=== PATIENT | female | born 1940 | race Caucasian/White ===

== ENCOUNTER 2016-08-06 12:22 | Emergency (ER) | payer OTHER ==
[~2016-08-06] VITALS: Ht 167.6 cm; Wt 90.7 kg
[~2016-08-06 12:22] MED LIST: ADULT LOW DOSE81 MG PO; APAP650 PO; CARDIZEM CD240 MG PO; COLACE100 MG PO; COZAAR 50 MG TA50 M2 PO; COZAAR100 MG PO; DAILY VALUE1 EAC1 PO; ELIQUIS5 MG PO; FISH OIL 1,001000 M2 PO; HYDROCHLOROTHIA25 M1 PO; HYDROCHLOROTHIA25 M2 PO; HYDROCODONE-AP1 EAC6 PO; LEVOTHYROXINE 0.1 MG PO; LOPRESSOR25 PO; MOBIC15 MG PO; MULTIVITAMINS1 EAC7 PO; PAXIL10 MG; PERCOCET PO; PRILOSEC20 MG PO; ZOCOR20 MG PO; ZOCOR40 MG PO
[2016-08-06] MEDS ORDERED: ELIQUIS5 MG PO (12:33)
[2016-08-06] MEDS ORDERED: LOPRESSOR50 PO (12:34)
[2016-08-06] MEDS ORDERED: CARTIA XT240 M1 PO (12:34)
[2016-08-06] MEDS ORDERED: LEVOTHYROXINE 0.1 MG PO (12:34)
[2016-08-06] MEDS ORDERED: LIPITOR 20 MG T20 M1 PO (12:34)
[2016-08-06] MEDS ORDERED: OMEPRAZOLE 20 M20 MG PO (12:35)
[2016-08-06] MEDS ORDERED: COZAAR 50 MG TA50 M2 PO (12:35)
[2016-08-06] MEDS ORDERED: HYDROCHLOROTHIA25 M1 PO (12:35)
[2016-08-06] MEDS ORDERED: MOBIC15 MG PO (12:36)
[2016-08-06] MEDS ORDERED: HYDROCODONE-AP1 EAC6 PO (13:46)
== END 2016-08-06 14:07 | disposition home or self-care (01) ==
LOC: ER 12:22
DX: S89.91XA Unspecified injury of right lower leg, initial encounter (principal); I10 Essential (primary) hypertension; E78.00 Pure hypercholesterolemia, unspecified; E03.9 Hypothyroidism, unspecified; Z90.710 Acquired absence of both cervix and uterus; Z88.8 Allergy status to other drugs, medicaments and biological substances; X58.XXXA Exposure to other specified factors, initial encounter; Y93.89 Activity, other specified; Y92.89 Other specified places as the place of occurrence of the external cause; Y99.9 Unspecified external cause status

== ENCOUNTER → 2017-10-05 | Outpatient (CLI) | payer OTHER ==
[~2017-10-05] VITALS: Ht 167.6 cm; Wt 90.7 kg
[~2017-10-05] MED LIST changes: +ASTRAGALUS ROOT1 GM PO; +BOSWELLIA SERRAT1 GM PO; +CALCIUM WITH M1 EACH PO; +CARTIA XT240 M1 PO; +CENTRUM SILVER1 EAC4 PO; +CINNAMON500 MG PO; +CO Q-10100 MG PO; +GARLIC1 EACH PO; +GINKGO BILOBA500 MG PO; +GRAPE SEED50 M1 PO; +KELP-LECITHIN-1 EACH PO; +L-ARGININE500 M1 PO; +LIPITOR 20 MG T20 M1 PO; +LOPRESSOR50 PO; +OMEPRAZOLE 20 M20 MG PO; +RESVERATROL100 MG PO; +TURMERIC500 M2 PO; +TYLENOL ARTHRI650 MG PO; +VITAMIN E400 UNI3 PO
--- NOTE | ~2017-10-05 | S ---
[facility] [place] [address] SURGICAL PATH RPT PROCEDURE Name: RAULITO GAMBOA ARELI Room #: REG TERESA M.Waylon.#: [id number] Admission: 10/05/17 Date of : 44 Discharge: Report #: [id number] Path Case #: [id number] PATHOLOGY REPORT COLLECTION DATE: 10/05/2017 RECEIVED DATE: 10/05/2017 SUBMITTING PHYS: Dr. Rafael Brooks OTHER PHYS: Dr. Neville Pérez SPECIMEN(S) RECEIVED: A.Bx of polyp at proximal ascending colon x2 B.Bx of abdomen fold vs polyp at hepatic flexure C.Polyp at proximal transverse D.Bx of diminutive polyp at mid transverse colon x4 E.Polyp at 70 cm F.Bx of polyp at 50 cm * * * * * * * * * * * * FINAL DIAGNOSIS: A. "BX of polyp at proximal ascending colon x2", biopsy: - Tubular adenoma; no high grade dysplasia. B. "BX of abdomen fold versus polyp at hepatic flexure", biopsy: - Tubular adenoma; no high grade dysplasia. - Hyperplastic polyp. C. "Polyp at proximal transverse", biopsy: - Tubular adenoma; no high grade dysplasia. D. "BX of diminutive polyp at mid transverse colon x4", biopsy: - Tubular adenoma; no high grade dysplasia. E. "Polyp at 70 cm", biopsy: - Tubular adenoma; no high grade dysplasia. F. "BX of polyp at 50 cm", biopsy: - Tubular adenoma; no high grade dysplasia. (CLW:mml; 10/06/2017) PATHOLOGIST: Ramandeep Morales M.D. REPORT ELECTRONICALLY SIGNED BY: Ramandeep Morales M.D. DATE/TIME: 10/06/2017 15:08 * * * * * * * * * * * * GROSS PATHOLOGY: A. Received in formalin labeled "Raulito Gamboa, polyp at proximal ascending colon," are multiple (more than 10) segments of easton soft tissue measuring 2.1 x 2.2 x 0.2 cm in aggregate dimensions and ranging from 0.1 to 0.5 cm in maximum dimension. The specimen is submitted entirely in cassette A1. [address] [address] SURGICAL PATH RPT PROCEDURE Name: RAULITO GAMBOA ARELI Room #: REG [facility].#: [id number] Admission: 10/05/17 Date of : 44 Discharge: Report #: [id number] Path Case #: [id number] B. Received in formalin labeled "Raulito Gamboa, BX of abdominal fold versus polyp at hepatic flexure," are 5 segments of easton soft tissue measuring 1.6 x 1.0 x 0.3 cm in aggregate dimensions and ranging from 0.3 to 0.4 cm in maximum dimension. The specimen is submitted entirely in cassette B1. C. Received in formalin labeled "Raulito Gamboa, polyp of the proximal transverse," is a 1.4 x 0.3 x 0.3 cm polypoid piece of easton soft tissue. The margin is inked and the tissue is sectioned perpendicular to the margin and submitted in its entirety in cassette C1. D. Received in formalin labeled "Raulito Gamboa, BX of diminutive polyp at mid transverse colon 4," are 7 segments of easton soft tissue measuring 2.5 x 1.5 x 0.3 cm in aggregate dimensions and ranging from 0.3 to 0.5 cm in maximum dimension. The specimen is submitted entirely in cassette D1. E. Received in formalin labeled "Raulito Gamboa, polyp at 70 cm," are 5 segments of easton soft tissue measuring 2.1 x 1.0 x 0.4 cm in aggregate dimensions and ranging from 0.3 to 0.5 cm in maximum dimension. The specimen is submitted entirely in cassette E1. F. Received in formalin labeled "Raulito Gamboa, polyp at 50 cm," are 3 segments of easton soft tissue measuring 0.8 x 0.4 x 0.3 cm in aggregate dimensions and ranging from 0.1 to 0.4 cm in maximum dimension. The specimen is submitted entirely in cassette F1. (TSD; 10/05/2017) CLINICAL HISTORY: Pre-OP DX: Hx polyps Post-OP DX: Colon polyps, diverticulosis INITIAL CPT CODE(S): A; 31877 B; 47428 C; 55796 D; 88029 E; 51687 F; 14954 Professional services performed by [facility] at [address] [address] Technical services performed by [facility] at [address] [place] [address], [address], [place] [address]. [facility] [address] [address] SURGICAL PATH RPT PROCEDURE Name: RAULITO GAMBOA ARELI Room #: REG TERESA Corrales#: [id number] Admission: 10/05/17 Date of : 44 Discharge: Report #: [id number] Path Case #: [id number] MANNY Barragan [address] PHONE: [phone] DIRECTOR: Primitivo Tripp M.D. * * * END OF REPORT * * *
--- NOTE | ~2017-10-05 | P ---
[facility] [place] [place] [address] PROCEDURE REPORT Name: RAULITO BYERS [facility] [id number] Admission: 10/05/17 Attend Phys: Rafael Brooks MD Discharge: Date of : 42 Report #: [id number] THIS REPORT FOR: //name// CC: Neville Redd MD [facility] Rafael Pérez MD DATE OF SERVICE: 10/05/2017 BRIEF HISTORY: The patient is a 77-year-old woman with a history of colon polyps with last colon exam 6-7 years ago. Her son recently of colon cancer, he was diagnosed at age 48. PREOPERATIVE DIAGNOSIS: High risk screening colonoscopy due to family history of colon cancer and personal history of colon polyps. POSTOPERATIVE DIAGNOSES: 1. Multiple colon polyps. 2. Abnormal fold versus polyp, hepatic flexure. 3. Mild sigmoid diverticulosis coli. ESTIMATED BLOOD LOSS: 3 mL. PROCEDURE: Colonoscopy to cecum and terminal ileum with snare polypectomy, biopsy, Kamini ink injection. FINDINGS: Prior to propofol sedation, procedure of colonoscopy was discussed with the patient as well as potential risks and its complications. She indicates she understands and desires to proceed. DESCRIPTION OF PROCEDURE: With the patient in left lateral decubitus position, digital examination was completed, which revealed no abnormalities. Subsequently, the [employer] video colonoscope was introduced into the rectum, advanced under direct vision to the cecum. Done with some difficulties as she had a tortuous redundant colon, which made forward advancement into the cecum difficult. We needed a stiffening wire and splint in the abdomen to reach the cecum. Cecum was reached, identified by the ileocecal valve and appendiceal orifice. I was able to visualize the distal segment of the terminal ileum, which was unremarkable. At that point, the scope was slowly withdrawn and careful circumferential views were obtained. Examination of the colon revealed an excellent prep. The mucosa was within normal limits, normal vascular pattern, normal light reflex. As we withdrew the scope, she was noted to have polyps in the proximal ascending colon. One was a fairly sessile polyp with some flat components and about 10 mm in greatest dimension. It was removed with [facility] [address] [place] [address] PROCEDURE REPORT Name: RAULITO BYERS ARELI Room #: REG [facility].#: [id number] Admission: 10/05/17 Attend Phys: Rafael Brooks MD Discharge: Date of : 44 Report #: [id number] snare polypectomy. In the same vicinity, 3 diminutive polyps were seen, which were removed by biopsy. As we further withdrew the scope, at the hepatic flexure behind the fold on the cecal side, there was a fullness and a polypoid appearance. Initially, it was thought to be a polyp, but on closer inspection, it was poorly demarcated. It almost looked like edematous mucosa. Since we did have difficulty advancing the scope in the cecum, this potentially was mucosal edema from the scope. It was not clear to me whether this was a neoplastic process or an abnormal fold is noted. Therefore, biopsies were obtained and the site was tattooed for future reference. The scope was further withdrawn and in the proximal transverse colon an elongated 6-8 mm polyp was seen and removed by cold snare polypectomy. In the mid transverse colon 4 diminutive polyps were seen and removed by biopsy. At 70 cm, a 5 mm flat polyp was seen and removed by cold snare polypectomy and at 50 cm another diminutive polyp was seen and removed by biopsy. Scope was further withdrawn and no additional abnormalities were seen. In addition, a few small scattered diverticula were seen in the sigmoid colon. The scope was withdrawn. The patient tolerated the procedure well. CONDITION OF THE PATIENT UPON DISCHARGE: Following procedure, the patient was drowsy, arousable and conversant. She will be discharged home when fully ambulatory. INSTRUCTIONS TO THE PATIENT AND FAMILY AT THE TIME OF DISCHARGE: Multiple polyps as noted above. All of them have a benign appearance. We will follow up on the path and make further recommendations. Also, in consideration of the abnormalities at the hepatic flexure, we will follow up on biopsies. If this is a neoplastic process, we will discuss with the patient about returning for complete polypectomy. Since her son was 40 at the time of diagnosis of cancer and she has had some new polyps today, we will have her return in 1-2 years for followup colon exam based on pathology. <ELECTRONICALLY SIGNED> By: Rafael Brooks MD 10/05/17 1334 1230 1256 Rafael Brooks MD /nt
== END | disposition home or self-care (01) ==
LOC: GI 07:34
DX: Z09 Encounter for follow-up examination after completed treatment for conditions other than malignant neoplasm (principal); D12.2 Benign neoplasm of ascending colon; D12.3 Benign neoplasm of transverse colon; D12.4 Benign neoplasm of descending colon; D12.5 Benign neoplasm of sigmoid colon; K63.5 Polyp of colon; K57.30 Diverticulosis of large intestine without perforation or abscess without bleeding; Z80.0 Family history of malignant neoplasm of digestive organs; I10 Essential (primary) hypertension; E78.00 Pure hypercholesterolemia, unspecified; I48.91 Unspecified atrial fibrillation; M19.90 Unspecified osteoarthritis, unspecified site; E03.9 Hypothyroidism, unspecified; Z98.890 Other specified postprocedural states; Z90.710 Acquired absence of both cervix and uterus; Z79.899 Other long term (current) drug therapy; Z96.641 Presence of right artificial hip joint; Z98.41 Cataract extraction status, right eye; Z98.42 Cataract extraction status, left eye
CPT/HCPCS: 62110; 62900

== ENCOUNTER 2018-06-10 05:17 | Emergency (ER) | payer OTHER ==
[~2018-06-10] VITALS: Ht 167.6 cm; Wt 90.7 kg
--- NOTE | ~2018-06-10 | EKG ---
[address] [address] ELECTROCARDIOGRAM REPORT Name: RAULITO BYERS [facility] [id number] Admission: 06/10/18 Attend Phys: Discharge: 06/10/18 Date of : 44 Report #: [id number] THIS REPORT FOR: //name// [facility] ED Test Date: 2018-06-10 Test Time: 08:15:17 Pat Name: RAULITO BYERS Department: Room: Gender: F Lasting Room Supervisor: [facility] : 1940 Requested By: Grace See Order Number: [id number] MD: Marcus Benton Measurements Intervals [place] Rate: 86 P: DC: QRS: 6 QRSD: 128 T: 16 QT: 479 QTc: 573 Interpretive Statements Atrial fibrillation Nonspecific intraventricular conduction delay NS ST/T abnormalities Compared to ECG 06/13/2015 07:01:23 No significant changes Electronically Signed On 06-10-2018 23:50:18 TICKET PULLER by Marcus Benton [email or web address] <ELECTRONICALLY SIGNED> By: Marcus Benton MD 06/10/18 2350 4 4 Marcus Benton MD /CARLY
[2018-06-10 07:47] LABS: ABSOLUTE NEUTROPHILS 6.1 thou/uL (1.4-8.2); BASOPHILS 0.5 % (0.0-2.0); EOSINOPHILS 0.8 % (0.0-3.0); HEMATOCRIT 35.2 % (37.0-47.0); HEMOGLOBIN 12.2 gm/dL (12.0-15.0); MCH 31.1 pg (26.0-34.0); MCHC 34.7 g/dL (28.0-37.0); MCV 89.6 fL (80.0-100.0); MONOCYTES 6.5 % (1.0-8.0); PLATELET COUNT 188 thou/uL (150-400); POLYS 73.2 % (36.0-66.0); RBC 3.93 mil/uL (4.20-5.00); RDW 13.9 % (10.5-14.5); WBC 8.3 thou/uL (4.0-11.0)
[2018-06-10 07:53] LABS: ANION GAP 11 mmol/L (7-16); BUN 33 mg/dL (7-18); CALCIUM 9.6 mg/dL (8.5-10.1); CHLORIDE 105 mmol/L (98-107); CO2 23 mmol/L (21-32); CREATININE 1.1 mg/dL (0.6-1.0); GLUCOSE 136 mg/dL (74-106); POTASSIUM 4.2 mmol/L (3.5-5.1); SODIUM 139 mmol/L (136-145)
[2018-06-10 08:02] LABS: TROPONIN-I <0.06 ng/mL (<0.06)
[2018-06-10] MEDS ORDERED: OXYCODONE HCL 55 MG PO (08:34)
[2018-06-10] MEDS ORDERED: MEDROLDOSEPACK PO (08:34)
[2018-06-10 10:08] VITALS: BP 139/77
== END 2018-06-10 10:11 | disposition home or self-care (01) ==
LOC: ER 05:17
PROVIDERS: Student in an Organized Health Care Education/Training Program
DX: M48.02 Spinal stenosis, cervical region (principal); M54.12 Radiculopathy, cervical region; M79.601 Pain in right arm; M19.90 Unspecified osteoarthritis, unspecified site; I48.91 Unspecified atrial fibrillation; I10 Essential (primary) hypertension; E78.5 Hyperlipidemia, unspecified; E03.9 Hypothyroidism, unspecified; K21.9 Gastro-esophageal reflux disease without esophagitis; Z96.641 Presence of right artificial hip joint; Z88.8 Allergy status to other drugs, medicaments and biological substances; Z98.890 Other specified postprocedural states; Z90.710 Acquired absence of both cervix and uterus; Z85.3 Personal history of malignant neoplasm of breast

== ENCOUNTER → 2019-08-05 | Outpatient (CLI) | payer OTHER ==
[~2019-08-05] MED LIST changes: +MEDROLDOSEPACK PO; +OXYCODONE HCL 55 MG PO
== END ==
LOC: SJCVCIMAG 12:56
DX: I48.0 Paroxysmal atrial fibrillation (principal); E78.00 Pure hypercholesterolemia, unspecified; I47.1 Supraventricular tachycardia; I10 Essential (primary) hypertension; M06.9 Rheumatoid arthritis, unspecified; E78.2 Mixed hyperlipidemia

== ENCOUNTER → 2020-05-07 | Outpatient (CLI) | payer OTHER | LOC: SJCVC 13:14 → SJCVCIMAG 13:14 | PROVIDERS: ATTEND Internal Medicine Cardiovascular Disease | DX: R94.31 Abnormal electrocardiogram [ECG] [EKG] (principal); I70.203 Unspecified atherosclerosis of native arteries of extremities, bilateral legs; I87.2 Venous insufficiency (chronic) (peripheral); M79.89 Other specified soft tissue disorders; E78.00 Pure hypercholesterolemia, unspecified; I10 Essential (primary) hypertension; I48.0 Paroxysmal atrial fibrillation ==

== ENCOUNTER → 2020-05-13 | Outpatient (CLI) | payer OTHER ==
[~2020-05-13] VITALS: Ht 167.6 cm; Wt 90.9 kg
[2020-05-13 10:14] LABS: HEMATOCRIT 37.9 % (37.0-47.0); HEMOGLOBIN 12.5 gm/dL (12.0-15.0); MCH 30.5 pg (26.0-34.0); MCV 92.5 fL (80.0-100.0); RBC 4.09 mil/uL (4.20-5.00); WBC 10.6 thou/uL (4.0-11.0)
[2020-05-13 10:15] VITALS: BP 145/53
[2020-05-13 10:26] LABS: CALCIUM 9.2 mg/dL (8.5-10.1); CREATININE 1.5 mg/dL (0.6-1.0); POTASSIUM 3.7 mmol/L (3.5-5.1)
== END | disposition home or self-care (01) ==
LOC: CATH 08:38
PROVIDERS: ATTEND Nuclear Medicine Nuclear Cardiology
DX: I87.1 Compression of vein (principal); I87.2 Venous insufficiency (chronic) (peripheral); M79.605 Pain in left leg; M79.604 Pain in right leg; R22.43 Localized swelling, mass and lump, lower limb, bilateral; I10 Essential (primary) hypertension; E78.5 Hyperlipidemia, unspecified; I48.91 Unspecified atrial fibrillation; E03.9 Hypothyroidism, unspecified; M19.90 Unspecified osteoarthritis, unspecified site; E66.9 Obesity, unspecified; I73.9 Peripheral vascular disease, unspecified; Z96.641 Presence of right artificial hip joint; Z98.890 Other specified postprocedural states; Z79.899 Other long term (current) drug therapy; Z90.710 Acquired absence of both cervix and uterus; Z98.41 Cataract extraction status, right eye; Z98.42 Cataract extraction status, left eye; Z79.01 Long term (current) use of anticoagulants; Z88.8 Allergy status to other drugs, medicaments and biological substances

== ENCOUNTER → 2020-12-16 | Outpatient (CLI) | payer OTHER ==
[~2020-12-16] VITALS: Ht 167.6 cm; Wt 90.9 kg
[~2020-12-16] MED LIST changes: +DILTIAZEM ER240 MG PO; +LEVOTHYROXINE100 MC2 PO; +LIPITOR40 MG PO; +LOSARTAN POTAS100 MG PO; +PREDNISONE 5 MG5 MG PO; +TOPROL XL50 MG PO
[2020-12-16 11:46] VITALS: BP 142/56
== END | disposition home or self-care (01) ==
LOC: CATH 06:53
PROVIDERS: ATTEND Nuclear Medicine Nuclear Cardiology
DX: I87.323 Chronic venous hypertension (idiopathic) with inflammation of bilateral lower extremity (principal); M79.605 Pain in left leg; M79.89 Other specified soft tissue disorders; I10 Essential (primary) hypertension; E78.5 Hyperlipidemia, unspecified; E03.9 Hypothyroidism, unspecified; I48.91 Unspecified atrial fibrillation; M19.90 Unspecified osteoarthritis, unspecified site; K21.9 Gastro-esophageal reflux disease without esophagitis; E66.09 Other obesity due to excess calories; Z98.890 Other specified postprocedural states; Z79.899 Other long term (current) drug therapy; Z90.710 Acquired absence of both cervix and uterus; Z96.641 Presence of right artificial hip joint; Z79.01 Long term (current) use of anticoagulants; Z88.8 Allergy status to other drugs, medicaments and biological substances

== ENCOUNTER 2021-02-20 07:21 | Inpatient (IN) | payer OTHER ==
[~2021-02-20] VITALS: Ht 167.6 cm; Wt 121.2 kg
[2021-02-20] VITALS (33 sets, daily range): BP systolic 81–125; BP diastolic 15–71
--- NOTE | ~2021-02-20 | HC ---
[facility] [place] [address] CONSULTATION Name: RAULITO BYERS Room #: 206-P ADM IN M.R.#: [id number] Admission: 02/20/21 Attend Phys: Loy Cosby MD Discharge: Date of : 44 Report #: [id number] THIS REPORT FOR: cc: Navi Pérez MD, Steven E. MD Smithson, David G. MD ~ DATE OF SERVICE: 02/22/2021 HISTORY OF PRESENT ILLNESS: The patient is a 80-year-old white female who was admitted with weakness and tired, noted to have fever x 2 days, frequent urination. She has been diagnosed with septic shock secondary to urinary tract infections. She also has atrial fibrillation with rapid ventricular rate and has been placed on amiodarone. She has severe protein calorie malnutrition and history of peripheral neuropathy. Her lactic acidosis has resolved. She has a prior history of chronic steroids for severe arthritis with immunosuppression. She has generalized weakness and debilitation and we are seeing her interval rotation medicine consultation. PAST MEDICAL HISTORY: Includes atrial fibrillation, hypertension, peripheral neuropathy, hyperlipidemia, rheumatoid arthritis, on chronic steroids. She has a history of significant arthritis of her back with chronic low back pain. MEDICATIONS: Please see the full medication listing. ALLERGIES: DULOXETINE ___ CYMBALTA. SOCIAL HISTORY: Lives in a house with her ____, although there is an elevator. 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 There also are grandchildren including a couple grandsons that work on the farm. REVIEW OF SYSTEMS: No current complaints of chest pain, shortness of breath or abdominal discomfort. PHYSICAL EXAMINATION: GENERAL: A 80-year-old obese white female in no obvious distress. The patient is alert. VITAL SIGNS: Temperature 36.4, pulse 107, respirations 18, blood pressure 139/68. HEENT: Appeared to be benign. NEUROLOGIC: Cranial nerves are grossly intact. She is currently on oxygen 4 liters. She has decreased and range of motion of both upper extremities with strength probably a grade 3+ to 4-/5. Lower extremities, no focal calf swelling. Strength is probably grade 3+ to 4-/5. Tone appeared to be intact. [address] [address] CONSULTATION Name: RAULITO BYERS Room #: 206-P [facility] IN M.R.#: [id number] Admission: 02/20/21 Attend Phys: Loy Cosby MD Discharge: Date of : 42 Report #: [id number] ASSESSMENT: A 80-year-old white female with the following problem list: 1. Medical complex with generalized debilitation. 2. Septic shock secondary to acute urinary tract infection. 3. Atrial fibrillation with rapid ventricular response. She has been on amiodarone drip. 4. Lactic acidosis, which has resolved. 5. Peripheral neuropathy. 6. Chronic steroid use for severe arthritis and immunosuppression. 7. Acute renal insufficiency. PLAN: PT and OT orders are added. Discussion with the patient and . We will need to see how the patient does and follow along with you regarding rehab therapy needs. Thank you for asking us to assist in this patient's care. Sincerely, By: 1157 1226 Yusuf Kyle MD /nt
--- NOTE | ~2021-02-20 | EMS ---
[facility] [address] [place] [address] EMS Patient Care Report Name: RAULITO BYERS Room #: 206-P ADM IN M.R.#: [id number] Admission: 02/20/21 Attend Phys: Loy Cosby MD Discharge: Date of : 44 Report #: [id number] THIS REPORT FOR: //name// Report Transmitted: 02/22/2021 14:28 EMS Care Summary [facility] [employer] Incident [id number] @ 02/20/2021 06:13 Incident Location [address] [place] [address] Patient RAULITO BYERS Female, 80 Years 1940 Patient Address [address] [place] [address] Patient History Hypertension (HTN),Arthritis,Cardiac Condition - Other, Patient Allergies No known allergies, Patient Medications Gabapentin, Lasix, Chief Complaint Increased tremors, fever Disposition Transported No Lights/[place] Dispatch Reason Sick Person Transported To [facility] Narrative Medic 52 dispatched to a residence for a 80 yo female with increased tremors. Upon arrival pt was sitting in chair in living room. Pt states that she has had increased tremors since last night. Pt states that she may have a kidney infection. Pt states that he gave her a old dose of doxycycline the [facility] [address] [place] [address] EMS Patient Care Report Name: RAULITO BYERS Room #: 206-P ADM IN M.R.#: [id number] Admission: 02/20/21 Attend Phys: Loy Cosby MD Discharge: Date of : 44 Report #: [id number] night before. Pt and poor historians. Pt AOX4 GCS 15. Pt vitals WNL. Pt with lower extremity edema. Pt assisted to standing and placed on stretcher and secured properly. Pt taken to ambulance and secured properly. EKG obtained and pt in a fib rvr which she states she is diagnosed with. IV established and zofran given for nausea. Pt transported to [facility]. During transport pt became slower to respond and when asked orientation questions pt AOx2. Upon arrival to [facility] pt taken to rm 9 and transferred to bed via sheet drag and secured properly. Pt report given to receiving rn concerning change in alertness and possible infection. Pt care transferred. Initial Vitals @06:45Temp: 100.4F,Glucose: 102, @07:01P: 123,R: 27,EtCO2: 35,SpO2: 94, @07:02P: 125,R: 29,EtCO2: 32,SpO2: 94, @07:12P: 145,R: 28,EtCO2: 34,SpO2: 94, @06:48MI Suspected: false @06:58P: 133,R: 30,EtCO2: 33,SpO2: 94, @07:06P: 155,R: 19,EtCO2: 26,SpO2: 95, @06:50P: 185,R: 12,BP: 140/103,EtCO2: 23, @06:53P: 147,R: 31,EtCO2: 28,SpO2: 93, @06:31P: 151,SpO2: 93,CT Suspected: false @07:12P: 85,R: 24,EtCO2: 33,SpO2: 93, @07:09P: 155,R: 25,BP: 173/147,EtCO2: 32,SpO2: 94, @06:53P: 64,R: 17,EtCO2: 34,SpO2: 93, @06:30P: 133,R: 16,BP: 155/47,Pain: 0/10,GCS: 15,SpO2: 94,Revised Trauma: 12, @07:14P: 190,R: 21,BP: 111/87,Pain: 0/10,GCS: 15,EtCO2: 19,SpO2: 95,Revised Trauma: 12, Impression Generalized Weakness Procedures @06:4812-Lead ECGResponse: UnchangedSucceeded@06:50Saline Lock 10cc (22 ga) Site: Hand-RightResponse: UnchangedSucceeded@06:55Zofran - 4 Milligrams (mg) - Intravenous (IV)Response: Improved Timeline 06:11,Call Received 06:11,Psap Call 06:13,Dispatched 06:16,En Route 06:26,On Scene 06:27,At Patient 06:30,BP: 155/47 M,PULSE: 133,RR: 16 R,SPO2: 94 Ox,ETCO2: ,BG: ,PAIN: 0,GCS: 15, [facility] [address] [place] [address] EMS Patient Care Report Name: RAULITO BYERS Room #: 206-P ADM IN M.R.#: [id number] Admission: 02/20/21 Attend Phys: Lyo Cosby MD Discharge: Date of : 44 Report #: [id number] 06:31,BP: / M,PULSE: 151,RR: R,SPO2: 93 Ox,ETCO2: ,BG: ,PAIN: ,GCS: , 06:45,BP: / M,PULSE: ,RR: R,SPO2: Ox,ETCO2: ,B,PAIN: ,GCS: , 06:46,Depart Scene 06:48,12-Lead ECG,Response: UnchangedSucceeded, 06:48,BP: / M,PULSE: ,RR: R,SPO2: Ox,ETCO2: ,BG: ,PAIN: ,GCS: , 06:50,Saline Lock 10cc 22 ga Site: Hand-Right,Response: UnchangedSucceeded, 06:50,BP: 140/103 M,PULSE: 185,RR: 12 R,SPO2: Ox,ETCO2: 23 ,BG: ,PAIN: ,GCS: , 06:53,BP: / M,PULSE: 64,RR: 17 R,SPO2: 93 Ox,ETCO2: 34 ,BG: ,PAIN: ,GCS: , 06:53,BP: / M,PULSE: 147,RR: 31 R,SPO2: 93 Ox,ETCO2: 28 ,BG: ,PAIN: ,GCS: , 06:55,Zofran - 4 Milligrams (mg) - Intravenous (IV),Response: Improved 06:58,BP: / M,PULSE: 133,RR: 30 R,SPO2: 94 Ox,ETCO2: 33 ,BG: ,PAIN: ,GCS: , 07:01,BP: / M,PULSE: 123,RR: 27 R,SPO2: 94 Ox,ETCO2: 35 ,BG: ,PAIN: ,GCS: , 07:02,BP: / M,PULSE: 125,RR: 29 R,SPO2: 94 Ox,ETCO2: 32 ,BG: ,PAIN: ,GCS: , 07:06,BP: / M,PULSE: 155,RR: 19 R,SPO2: 95 Ox,ETCO2: 26 ,BG: ,PAIN: ,GCS: , 07:09,BP: 173/147 M,PULSE: 155,RR: 25 R,SPO2: 94 Ox,ETCO2: 32 ,BG: ,PAIN: ,GCS: , 07:12,BP: / M,PULSE: 145,RR: 28 R,SPO2: 94 Ox,ETCO2: 34 ,BG: ,PAIN: ,GCS: , 07:12,BP: / M,PULSE: 85,RR: 24 R,SPO2: 93 Ox,ETCO2: 33 ,BG: ,PAIN: ,GCS: , 07:14,BP: 111/87 M,PULSE: 190,RR: 21 R,SPO2: 95 Ox,ETCO2: 19 ,BG: ,PAIN: 0,GCS: 15, 07:15,At Destination 07:33,Transfer Patient 07:49,Call Closed Disclaimer v1.1 Copyright 2020 [employer] This EMS Care Summary contains data elements from the applicable legal record (which may be displayed differently). It is designed to provide pertinent information for the following purposes: continuity of care, clinical quality, and state data reporting. The complete legal record is available to ED staff and administrators of the receiving hospital in [employer]'s Patient Tracker. All data is provided "as is."
[2021-02-20 07:49] LABS: ABSOLUTE NEUTROPHILS 9.4 thou/uL (1.4-8.2); BASOPHILS 0.1 % (0.0-2.0); EOSINOPHILS 0.1 % (0.0-3.0); HEMATOCRIT 34.1 % (37.0-47.0); HEMOGLOBIN 11.4 gm/dL (12.0-15.0); LYMPHOCYTES 6.5 % (24.0-44.0); MCH 29.1 pg (26.0-34.0); MCHC 33.4 g/dL (28.0-37.0); MCV 87.4 fL (80.0-100.0); MONOCYTES 2.2 % (1.0-8.0); PLATELET COUNT 168 thou/uL (150-400); POLYS 91.1 % (36.0-66.0); RBC 3.91 mil/uL (4.20-5.00); RDW 17.4 % (10.5-14.5); WBC 10.3 thou/uL (4.0-11.0)
[2021-02-20 07:56] LABS: URINE BILIRUBIN NEGATIVE (Negative); URINE BLOOD 2+ (Negative); URINE CLARITY CLOUDY; URINE COLOR YELLOW; URINE GLUCOSE-RANDOM* NEGATIVE (Negative); URINE KETONES NEGATIVE (Negative); URINE NITRITE-REFLEX NEGATIVE (Negative); URINE PROTEIN (DIPSTICK) 2+ (Negative); URINE UROBILINOGEN 0.2 E.U./dl (0.2-1.0)
[2021-02-20 07:59] LABS: URINE LEUKOCYTES-REFLEX 3+ (Negative)
[2021-02-20 07:59] LABS: ANION GAP 12 mmol/L (7-16); BUN 40 mg/dL (7-18); CALCIUM 8.6 mg/dL (8.5-10.1); CHLORIDE 102 mmol/L (98-107); CO2 26 mmol/L (21-32); CREATININE 1.7 mg/dL (0.6-1.0); GLUCOSE 97 mg/dL (74-106); POTASSIUM 3.7 mmol/L (3.5-5.1); SODIUM 140 mmol/L (136-145)
[2021-02-20 08:08] LABS: AMORPHOUS URATES Few /LPF (None Seen); BACTERIA-REFLEX 1-9 Few /HPF (None Seen); CASTS None Seen /LPF (None Seen); SQUAMOUS None Seen /LPF (0-3); URINE RBC 3-10 Few /HPF (NONE SEEN); URINE WBC-REFLEX >25 Many /HPF (0-5)
[2021-02-20 08:09] LABS: ALBUMIN 3.1 g/dL (3.4-5.0); MAGNESIUM 2.3 mg/dL (1.8-2.4); SGOT 23 U/L (15-37); SGPT 27 U/L (30-65); TOTAL BILIRUBIN 0.9 mg/dL (0.2-1.0); TOTAL PROTEIN 6.3 g/dL (6.4-8.2); TROPONIN-I <0.06 ng/mL (<0.06)
[2021-02-20 08:44] LABS: INR 1.03; PROTIME 11.2 Seconds (10.5-12.1)
[2021-02-20 10:46] LABS: CALCIUM 7.7 mg/dL (8.5-10.1); CREATININE 1.7 mg/dL (0.6-1.0); POTASSIUM 3.5 mmol/L (3.5-5.1)
--- NOTE | 2021-02-20 12:24 | EKG ---
[address] [address] ELECTROCARDIOGRAM REPORT Name: RAULITO BYERS Room #: 243-P ADM IN M.R.#: [id number] Admission: 02/20/21 Attend Phys: Loy Cosby MD Discharge: Date of : 42 Report #: [id number] [facility] ED Test Date: 2021-02-20 Test Time: 07:25:54 Pat Name: RAULITO BYERS Department: Room: 243 Gender: F Electronic Operator: Waylon [employer]ISTRY : 1940 Requested By: Xi Erickson Order Number: [id number] MD: Ang Ellison Measurements Intervals [place] Rate: 164 P: [place]: QRS: 32 QRSD: 68 T: QT: 287 QTc: 474 Interpretive Statements Atrial fibrillation with rapid V-rate Low voltage, precordial leads Repolarization abnormality, prob rate related Compared to ECG 06/10/2018 08:15:17 Electronically Signed On 02-20-2021 12:24:21 CDT by Ang Ellison [email or web address] <ELECTRONICALLY SIGNED> By: Ang Ellison MD 02/20/21 1224 4 4 Ang Ellison MD /CARLY
--- NOTE | 2021-02-20 17:02 | NUR ---
CL PLACED IN ER
--- NOTE | 2021-02-20 19:53 | NUR ---
PT CAME FROM ER AT 1215. PT ALERT AND ORIENTED X3. PT WAS ACCOMPANIED BY TOUR SALES REPRESENTATIVE MACEY. PT CONNECTED TO ICU MONITOR. PT'S HEART RATE AROUND 140'S. AT BEDSIDE TO SEE THE PATIENT. DIGOXIN WAS GIVEN AND AMIODARONE GTT WAS STARTED. PT HAS A RIGHT IJ TRIPLE LUMEN CVC AND MERCADO CATHETER. STEW AT BEDSIDE. WAS UPDATED ON THE PT CONDITION AND WAS INFORMED ABOUT ICU VISITATION POLICY AND VISITATION HOURS.
[2021-02-21] VITALS (15 sets, daily range): BP systolic 101–155; BP diastolic 45–96
[2021-02-21 04:45] LABS: ABSOLUTE NEUTROPHILS 17.7 thou/uL (1.4-8.2); BASOPHILS 0.1 % (0.0-2.0); HEMATOCRIT 28.6 % (37.0-47.0); LYMPHOCYTES 5.1 % (24.0-44.0); MCHC 32.5 g/dL (28.0-37.0); MCV 89.3 fL (80.0-100.0); MONOCYTES 4.7 % (1.0-8.0); PLATELET COUNT 139 thou/uL (150-400); POLYS 90.1 % (36.0-66.0); RDW 17.4 % (10.5-14.5); WBC 19.6 thou/uL (4.0-11.0)
[2021-02-21 04:50] LABS: HEMOGLOBIN 9.3 gm/dL (12.0-15.0)
[2021-02-21 05:00] LABS: ALBUMIN 2.3 g/dL (3.4-5.0); CALCIUM 7.4 mg/dL (8.5-10.1); CREATININE 1.3 mg/dL (0.6-1.0); TOTAL BILIRUBIN 0.5 mg/dL (0.2-1.0); TOTAL PROTEIN 4.9 g/dL (6.4-8.2)
[2021-02-21 05:08] LABS: POTASSIUM 4.5 mmol/L (3.5-5.1)
--- NOTE | 2021-02-21 10:51 | HC ---
[facility] [place] [address] CONSULTATION Name: RAULITO BYERS Room #: 206- ADM IN M.R.#: [id number] Admission: 02/20/21 Attend Phys: Loy Cosby MD Discharge: Date of : 42 Report #: [id number] THIS REPORT FOR: cc: Navi Pérez MD, Steven E. MD Barry,Roland Brown MD ~ DATE OF SERVICE: 02/21/2021 INFECTIOUS DISEASE CONSULTATION ATTENDING PHYSICIAN: Dr. Cosby. REASON FOR EVALUATION: Septic shock, suspected genitourinary tract infection. HISTORY OF PRESENT ILLNESS: Chart reviewed, the patient examined. This is a 80-year-old woman who lives at home, has fairly extensive medical history who apparently experienced an extended period of shaking chills, had developed some fevers and encephalopathy. There is no history of recurrent urinary tract infections, had experienced some frequency over the last two days prior to admission, had likely become dehydrated, still taking her diuretics in spite of poor p.o. intake. Evaluation found to have marked pyuria. Urine cultures pending, negative coronavirus test. Creatinine was elevated at 1.7. Lactic acid 3.5. ProBNP 1600. Procalcitonin 5.760. Chest x-ray raised question of a lower lobe pneumonitis as well. She was given fluid resuscitation, has not required pressor support. It is notable she was in atrial fibrillation with a rapid rate, started on amiodarone. She was given a dose of ceftriaxone and gentamicin. She is somewhat more lucid today. Denies significant pain either in the abdomen or the flanks, maintained on supplemental oxygen at 2 liters per minute. She has been afebrile. ALLERGIES: TO DULOXETINE. CURRENT MEDICATIONS: Include famotidine, ceftriaxone, levothyroxine, amiodarone, hydrocortisone. PAST MEDICAL HISTORY: Includes atrial fibrillation, hypertension, hyperlipidemia, hypothyroidism, on replacement, chronic venous insufficiency, chronic renal insufficiency, reflux. SOCIAL HISTORY: Nonsmoker, no ethanol, no illicit drug use. FAMILY HISTORY: Noncontributory. REVIEW OF SYSTEMS: Otherwise, unremarkable with the exception of the above. PHYSICAL EXAMINATION: [facility] [address] [place] [address] CONSULTATION Name: RAULITO BYERS Room #: 206-P [facility] IN M.R.#: [id number] Admission: 02/20/21 Attend Phys: Loy Cosby MD Discharge: Date of : 44 Report #: [id number] GENERAL: She appears somewhat chronically ill, undernourished. She is generally responsive and fairly oriented at this point. She has mild to moderate distress. VITAL SIGNS: Temperature 98, pulse 72, respirations 12, blood pressure 109/74. SKIN: Warm, dry, no rashes. HEENT: Normocephalic. Extraocular muscles intact. Nasal cannula in place. NECK: Supple. LUNGS: Have a few scattered coarse sounds. HEART: Irregular, do not appreciate a murmur. ABDOMEN: Distended, soft. There are no peritoneal signs. No flank tenderness. GENITOURINARY AND RECTAL: Deferred. LABORATORY DATA: Electrolytes from this morning, sodium 142, potassium 4.5, chloride 109, bicarbonate 25, anion gap of 8, BUN and creatinine 30 and 1.3. LFTs unremarkable. Albumin of 2.3, total protein of 4.9. Estimated GFR of 40. Lactic acid of now 0.7. Troponin 0.27. CBC: White count of 19.6, H and H 9.3 and 28.6, platelet count of 139. Chest x-ray as noted above, possible left basilar pneumonitis. Procalcitonin 5.60. TSH of 10.272. ASSESSMENT AND PLAN: Septic shock, which responded to fluid resuscitation, had multiorgan dysfunction including encephalopathy, renal insufficiency as well as respiratory failure. I suspect etiology is genitourinary tract, has been empirically started on therapy. We will adjust that to cover likely gram-negative in the setting it is difficult to ascertain exactly. However, she has these. I am mildly concerned about multiple resistant organism. This is the first time she has had cultures here. Continue supportive care. Seemingly has responded to intervention thus far. <ELECTRONICALLY SIGNED> By: Roland Harrington MD 02/21/21 1051 0515 0740 Roland Harrington MD /nt
[2021-02-21 12:21] LABS: CALCIUM 7.8 mg/dL (8.5-10.1); CREATININE 1.3 mg/dL (0.6-1.0); POTASSIUM 4.3 mmol/L (3.5-5.1)
--- NOTE | 2021-02-21 17:15 | NUR ---
ASSUMED CARE OF PT AROUND 0900. PT WAS A TRANSFER FROM ICU. PT ALERT AND ORIENTED TIMES FOUR. VSS. IVF AND AMIODARONE GTT INFUSING PER ORDER. MERCADO TO DD. PT DENIES PAIN/SOA. PT TOLERATES MEDS AND MEALS. PT AT BEDSIDE. WILL CONTINUE TO MONITOR.
[2021-02-22 05:19] VITALS: BP 150/71
[2021-02-22 06:28] LABS: ABSOLUTE NEUTROPHILS 14.4 thou/uL (1.4-8.2); BASOPHILS 0.2 % (0.0-2.0); HEMATOCRIT 29.9 % (37.0-47.0); HEMOGLOBIN 9.7 gm/dL (12.0-15.0); MCH 28.8 pg (26.0-34.0); MCHC 32.5 g/dL (28.0-37.0); MCV 88.7 fL (80.0-100.0); MONOCYTES 5.8 % (1.0-8.0); PLATELET COUNT 151 thou/uL (150-400); RBC 3.37 mil/uL (4.20-5.00); RDW 17.6 % (10.5-14.5); WBC 16.7 thou/uL (4.0-11.0)
[2021-02-22 07:46] VITALS: BP 139/68
--- NOTE | 2021-02-22 07:47 | NUR ---
PT GIVEN TYLENOL FOR C/O VALDEZ AT START OF SHIFT, UP TO BSC WITH NO RESULTS FOR BM, MERCADO DRAINING YELLOW URINE, LABS DRAWN THRU R IJ, RA SAT 95%, ASSISTED UP CHAIR THIS AM REPORT GIVEN TO NEXT SHIFT TO CON'T PPOC.
--- NOTE | 2021-02-22 13:57 | NUR ---
met with patient and spouse in hallway. Patient admits with weakness. Patient resides in independent home with spouse. She reports step to enter from garage and then they have lift chair. patient uses a cane in home. She has a walker as well. She is currenlty on oxygen that she does not use a home. She does not drive, spouse drives. Patient evaled by [facility] prior to therapy ordered. PT/OT to eval to assist with dc plannning.
[2021-02-22 14:04] LABS: CALCIUM 7.8 mg/dL (8.5-10.1); CREATININE 1.3 mg/dL (0.6-1.0); POTASSIUM 4.1 mmol/L (3.5-5.1)
--- NOTE | 2021-02-22 14:42 | 2DMMODE ---
[facility] [place] [address] 2 D/M-MODE ECHOCARDIOGRAM Name: RAULITO BYERS Room #: 206-P ADM IN M.R.#: [id number] Admission: 02/20/21 Attend Phys: Loy Cosby MD Discharge: Date of : 44 Report #: [id number] THIS REPORT FOR: cc: Navi Pérez MD, Steven E. MD Lammoglia, Francisco J. MD ~ APPROVED REPORT Study performed: 02/22/2021 13:43:16 EXAM: Comprehensive 2D, Doppler, and color-flow Echocardiogram Patient Location: Bedside Room #: 206 Status: routine BSA: 2.24 HR: 107 bpm BP: 139/68 mmHg Rhythm: Atrial Fibrillation Other Information Study Quality: Adequate Indications Congestive Heart Failure Atrial Fibrillation 2D Dimensions RVDd: 35.79 mm IVSd: 10.84 (7-11mm) LVOT Diam: 19.70 (18-24mm) LVDd: 48.93 mm PWd: 10.86 (7-11mm) Ascending Ao: 33.64 (22-36mm) LVDs: 36.51 (25-40mm) Aortic Root: 32.63 mm IVC: 28.00 mm Volumes Left Atrial Volume (Systole) Single Plane 4CH: 67.54 mL Single Plane 2CH: 53.13 mL LA ESV Index: 29.00 mL/m2 Aortic Valve AoV Peak Ezequiel.: 1.53 m/s AO Peak Gr.: 9.30 mmHg LVOT Max P.10 mmHg LVOT Max V: 1.13 m/s MAGI Vmax: 2.25 cm2 [facility] [address] [place] [address] 2 D/M-MODE ECHOCARDIOGRAM Name: RAULITO BYERS Room #: 206-P ADM IN .R.#: [id number] Admission: 02/20/21 Attend Phys: Fernando Rosa Discharge: Date of : 44 Report #: [id number] Pulmonary Valve PV Peak Ezequiel.: 0.81 m/s PV Peak Gr.: 2.62 mmHg Tricuspid Valve TR Peak Ezequiel.: 2.64 m/s TR Peak Gr.: 27.91 mmHg PA Pressure: 38.00 mmHg Left Ventricle The left ventricle is normal size. There is normal LV segmental wall motion. There is normal left ventricular wall thickness. The left ventricular systolic function is normal. The left ventricular ejection fraction is within the normal range. LVEF is 55%. This study is not technically sufficient to allow evaluation of the LV diastolic function due to atrial fibrillation. Right Ventricle The right ventricle is normal size. The right ventricular systolic function is normal. Atria Left atrium is at the upper limits of normal. Right atrium is dilated. Aortic Valve The aortic valve is normal in structure. No aortic regurgitation is present. There is no aortic valvular stenosis. Mitral Valve The mitral valve is normal in structure. Mild mitral regurgitation. No evidence of mitral valve stenosis. Tricuspid Valve The tricuspid valve is normal in structure. There is mild tricuspid regurgitation. Estimated PAP 38 mmHg. There is mild pulmonary hypertension. Pulmonic Valve The pulmonary valve is normal in structure. Trace pulmonic regurgitation. Great Vessels The aortic root is normal in size. IVC is dilated and collapses <50% with inspiration. [facility] [address] [place] [address] 2 D/M-MODE ECHOCARDIOGRAM Name: RAULITO BYERS Room #: [facility] ADM IN .R.#: [id number] Admission: 02/20/21 Attend Phys: Fernando Rosa Discharge: Date of : 44 Report #: [id number] Pericardium Trace pericardial effusion. <Conclusion> The left ventricle is normal size. There is normal LV segmental wall motion. LVEF is 55%. Left atrium is at the upper limits of normal. Right atrium is dilated. The aortic valve is normal in structure. The mitral valve is normal in structure. Mild mitral regurgitation. The tricuspid valve is normal in structure. There is mild tricuspid regurgitation. Estimated PAP 38 mmHg. There is mild pulmonary hypertension. The pulmonary valve is normal in structure. Trace pulmonic regurgitation. The aortic root is normal in size. Trace pericardial effusion. <ELECTRONICALLY SIGNED> By: Marcus Benton MD 02/22/21 1442 [id number] [id number] Marcus Benton MD /INF
--- NOTE | 2021-02-22 17:20 | NUR ---
PT ALERT AND ORIENTED TIMES FOUR. VSS, ST ON TELE. IVF INFUSING PER ORDER. PT DENIES PAIN. PT TOLEARTES MEDS AND MEALS. PT UP SITTING IN THE CHAIR FOR SOME PART OF THE SHIFT. PT AT BEDSIDE. WILL CONTINUE TO MONITOR.
[2021-02-22 20:24] VITALS: BP 156/70
[2021-02-23] VITALS: BP 138/41
[2021-02-23 04:35] VITALS: BP 149/65
--- NOTE | 2021-02-23 06:33 | NUR ---
PT IS ALERT AND OREINTED X4. ON 3 LITERS OXGYGEN LUNGS ARE DIMINISHED. SLEPT IN CHAIR STATES MORE COMFORTALBE THAN THE BED CANT SLEEP IN THE BED. ABDOMEN IS ROUND BOWEL SOUNDS ACTIVE X4. MERCADO TO DD WITH YELLOW URINE PRESENT. 3 PLUS PEDAL EDEMA NOTED BILATERAL. DENIES ANY COMPLAINTS OF PAIN CALL LIGHT WITHIN REACH IF NEEDS ASSISTANCE PER NURSING
[2021-02-23 08:53] VITALS: BP 133/71
--- NOTE | 2021-02-23 09:01 | NUR ---
BPCI letter and preferred network list provided to patient and spouse at bedside, patient lives in home setting
[2021-02-23 09:10] LABS: CALCIUM 8.7 mg/dL (8.5-10.1); CREATININE 1.3 mg/dL (0.6-1.0); POTASSIUM 3.8 mmol/L (3.5-5.1)
[2021-02-23 11:28] VITALS: BP 131/50
--- NOTE | 2021-02-23 13:39 | NUR ---
patient evaled by [facility] they are accepting. Sp with patient and spouse they are agreeable to transfer to [facility] once stable. Patient wants to dc home soon. Updated phys
[2021-02-23 15:22] VITALS: BP 138/69
--- NOTE | 2021-02-23 16:54 | NUR ---
PATIENT PROGRESSING TOWARDS DISMISSAL GOALS. FAMILY AT BEDSIDE DURING THE DAY TODAY. PATIENT CONTINUING ON DIURETICS AND ANTIBIOTICS. UP IN CHAIR. AMBULATES IN MILLS WITH THERAPIES. TOLERATING DIET WELL. 3L NC.
[2021-02-24 05:03] VITALS: BP 154/67
[2021-02-24 07:49] VITALS: BP 140/61
[2021-02-24 11:01] LABS: CALCIUM 8.7 mg/dL (8.5-10.1); CREATININE 1.3 mg/dL (0.6-1.0); POTASSIUM 3.8 mmol/L (3.5-5.1)
[2021-02-24 11:03] VITALS: BP 128/60
[2021-02-24] MEDS ORDERED: DEMADEX20 MG PO (12:11)
[2021-02-24] MEDS ORDERED: CEFDINIR300 MG PO (12:11)
[2021-02-24] MEDS ORDERED: SYNTHROID137 MC1 PO (12:11)
--- NOTE | 2021-02-24 12:43 | NUR ---
patient to dc to [facility] today.
--- NOTE | 2021-02-24 16:30 | NUR ---
PT ASSESSED AT START OF SHIFT. PROGRESSING WELL. DIURESING WELL. EDEMA DOWN. ABLE TO AMBULATE W/O O2 AND NOW ON ROOM AIR. PT DISCHARGED TO REHAB AT THIS TIME W/ ALL BELONGINGS.
== END 2021-02-24 15:11 | DRG 871 ==
LOC: ER 07:21 → 2N 09:05 → EROBS 09:05 → ICU 11:51 → 2N 02-21 08:15
PROVIDERS: Emergency Medicine; Nurse Practitioner; ADMIT Hospitalist; ATTEND Hospitalist
PROC: 02HV33Z Insertion of Infusion Device into Superior Vena Cava, Percutaneous Approach (ICD-10-PCS; principal; 2021-02-20)
DX: A41.51 Sepsis due to Escherichia coli [E. coli] (principal); E43 Unspecified severe protein-calorie malnutrition; J18.9 Pneumonia, unspecified organism; R65.21 Severe sepsis with septic shock; J96.01 Acute respiratory failure with hypoxia; I50.31 Acute diastolic (congestive) heart failure; N39.0 Urinary tract infection, site not specified; E87.2 Acidosis; G93.40 Encephalopathy, unspecified; I48.21 Permanent atrial fibrillation; Z68.41 Body mass index [BMI] 40.0-44.9, adult; Z20.822 Contact with and (suspected) exposure to COVID-19; M19.90 Unspecified osteoarthritis, unspecified site; E78.5 Hyperlipidemia, unspecified; E03.9 Hypothyroidism, unspecified; K21.9 Gastro-esophageal reflux disease without esophagitis; Z96.641 Presence of right artificial hip joint; G62.9 Polyneuropathy, unspecified; M06.9 Rheumatoid arthritis, unspecified; M54.5 Low back pain; G89.29 Other chronic pain; R53.81 Other malaise; I48.0 Paroxysmal atrial fibrillation; I95.9 Hypotension, unspecified; I87.2 Venous insufficiency (chronic) (peripheral); D64.89 Other specified anemias; D69.6 Thrombocytopenia, unspecified; E66.9 Obesity, unspecified; I11.0 Hypertensive heart disease with heart failure; Z79.01 Long term (current) use of anticoagulants; Z90.710 Acquired absence of both cervix and uterus; Z98.42 Cataract extraction status, left eye; Z98.41 Cataract extraction status, right eye; Z88.8 Allergy status to other drugs, medicaments and biological substances; Z79.52 Long term (current) use of systemic steroids; Z87.11 Personal history of peptic ulcer disease
CPT/HCPCS: 10078; 10081; 10797; 65040

== ENCOUNTER 2021-02-24 12:14 | Inpatient (IN) | payer OTHER ==
[~2021-02-24] VITALS: Ht 167.6 cm; Wt 106.6 kg
--- NOTE | ~2021-02-24 | PLAN ---
[facility] [place] [address] REHAB UNIT PLAN OF CARE Name: RAULITO BYERS Room #: 516-1 ADM IN M.R.#: [id number] Admission: 02/24/21 Attend Phys: Yusuf Kyle MD Discharge: Date of : 44 Report #: [id number] THIS REPORT FOR: cc: Navi Pérez MD, Steven E. MD Smithson,Yusuf Smith MD ~ DATE OF SERVICE: 02/27/2021 PROGRESS NOTE AND OVERALL PLAN OF CARE HISTORY OF PRESENT ILLNESS: The patient was seen yesterday in no distress. She is feeling better, had no specific complaints. She desired to have hose for both lower extremities and apparently wore them at home. I did go ahead and order bilateral knee high EUGENE hose larger size available. She is also getting her legs wrapped for lower extremity edema. Nursing is working with her not having a BM. She has been working in therapies with progress overall as far as her functional independence. She is working on transfers, basically a min assist level and is ambulating 70 feet with front-wheeled walker, min assist. In occupational therapy, she is min assist with lower extremity dressing. Min assist, upper body. She actually has moderate assistance with some of her lower body dressing. Speech therapy is seeing her and she has moderate to severe memory deficits with moderate cognitive deficits. She continues on nasal prong O2, although we are tapering her down to 0 from 1 liter. ASSESSMENT: 1. Toxic metabolic encephalopathy. 2. Medical complexity with generalized debilitation. 3. Septic shock secondary to acute urinary tract infection with complications of respiratory failure and renal insufficiency. 4. Atrial fibrillation with rapid ventricular response. 5. Lactic acidosis, resolved. 6. Peripheral neuropathy. 7. Chronic steroid use for severe arthritis on immunosuppression. 8. Premorbidly chronic low back pain with degenerative arthritis. 9. Acute renal insufficiency superimposed on chronic renal insufficiency. PLAN: The overall plan of care is based on the pre-admit screen and information garnered from therapy assessments. 1. Estimated length of stay is 10-14 days. 2. Medical prognosis is reasonably good. 3. Anticipated interventions includes the interdisciplinary acute inpatient rehabilitation program. 4. Anticipated functional outcomes would be for the patient to improve overall mobility, transfers, ADLs, cognition, so that she can return back to the home setting. 5. Discharge destination would be back to the [place] [address] REHAB UNIT PLAN OF CARE Name: RAULITO BEYRS Room #: 516-1 ADM IN [facility]#: [id number] Admission: 02/24/21 Attend Phys: Yusuf Kyle MD Discharge: Date of : 44 Report #: [id number] her . 6. Expected therapy by discipline includes PT, OT and speech 1 hour per day each five days a week throughout the duration of the acute inpatient rehabilitation stay. ADDENDUM: The patient's prognosis for significant practical improvement within a reasonable period of time appears good. Given the patient's complex medical condition and risk of further medical complication, rehabilitation services could not be safely provided at the lower level of care such as a senior care facility. By: [phone] Yusuf Kyle MD /nt
[~2021-02-24 12:14] MED LIST changes: +CEFDINIR300 MG PO; +DEMADEX20 MG PO; +SYNTHROID137 MC1 PO
--- NOTE | 2021-02-24 14:53 | NUR ---
Chart review. Going to acute rehab today. Unable to visit with Gricelda merino/cruz she is working with therapy. Cm visited with Maxim. Intro to case management, dcp and team meetings. Noted they lives in house 2 steps to enter home and then have stair lift. Have stairs to basement but she doesn't must do them. Has cane. Manage her own medication. Not driven in few months after had surgery on veins on her legs and then her back problems. PCP Dr. Pérez. Not had hh or rehab in past. Was using oxygen here and not ever had home o2 before. Will need to see if she requires need for home o2 if unable to wean off oxygen. BPCI. Will cont. following as needed for dc needs.
[2021-02-24 15:15] VITALS: BP 131/64
--- NOTE | 2021-02-24 19:24 | NUR ---
PATIENT ARRIVED AT 1515 VIA WC, TRANSFERRED WITH 2 PERSON ASSIST, MAX ASSIST SIT TO STAND. AT BEDSIDE. PT IS ALERT AND NOTED MEMORY MAY NOT BE GOOD, BUT NOTED THAT SHE IS "MUCH BETTER THAN SHE WAS." PT HAS A CENTRAL LINE IN THE RT NECK, AND DRESSING WAS FALLING OFF SO THIS WAS CHANGED USING STERILE TECHNIQUE. REPORTED TO ONCOMING SHIFT RN THAT CAPS WILL NEED TO BE CHANGED TODAY.
[2021-02-24 19:45] VITALS: BP 156/73
--- NOTE | 2021-02-25 00:51 | NUR ---
PT ASSESSMENT COMPLETED AND VSS. MEDS GIVEN ORDERED AND WELL TOLERATED. FALL PRECAUTIONS IN PLACE. MERCADO DRAINING MODERATE AMOUNT OF YELLOW URINE. PT SAYS THAT SHE SLEEPING IN HER CHAIR AT HOME AND IS NOT ABLE TO SLEEP IN A BED. ASST PT TO THE CHAIR WITH ASST/GAIT/WALKER - PIVOT. PT SLEEPING WELL AT THIS TIME. MELATONIN ORDERED BECAUSE PT STATES THAT SHE HAS NOT BEEN SLEEPING WELL. TYLENOL GIVEN FOR GENERALIZED AND RIGHT SHOULDER PAIN. WILL CONTINUE TO MONITOR FREQUENTLY. PT DID WEAR HER SCDS FOR A FEW HOURS AND THEN REFUSED THEM.
[2021-02-25 06:14] LABS: HEMATOCRIT 30.8 % (37.0-47.0); HEMOGLOBIN 10.2 gm/dL (12.0-15.0); MCH 28.8 pg (26.0-34.0); MCHC 33.2 g/dL (28.0-37.0); MCV 86.7 fL (80.0-100.0); RBC 3.56 mil/uL (4.20-5.00); RDW 16.6 % (10.5-14.5); WBC 8.3 thou/uL (4.0-11.0)
[2021-02-25 06:33] LABS: CALCIUM 8.6 mg/dL (8.5-10.1); CREATININE 1.2 mg/dL (0.6-1.0); POTASSIUM 3.8 mmol/L (3.5-5.1)
--- NOTE | 2021-02-25 13:47 | NUR ---
ASSUMED CARE OF PT AT 0700 THIS MORNING. ASSESSMENTS NO CHANGE FROM LAST AND OTHERWISE UNREMARKABLE. SCORING MACHINE OPERATOR MARYAN GAVE ORDERS TP REMOVE INDWELLING CATH. FALL PRECAUTIONS ARE IN PLACE. CALL LIGHT AND OTHER NEEDS ARE WITHIN REACH. MEDS AND TX GIVEN NEEDED AND SCHEDULED. WILL MONITOR AND NOTE GEORGE CHANGES.
[2021-02-25 19:41] VITALS: BP 153/53
--- NOTE | 2021-02-26 00:28 | NUR ---
PT ASSESSMENT COMPLETED AND VSS. MEDS GIVEN ORDERED AND WELL TOLERATED. FALL PRECAUTIONS IN PLACE. SLEEPING MEDICATION HELPFUL. PT CONCERNED ABOUT NOT HAVING A BM FOR 5 DAYS. MEDS THAT HAD BEEN GIVEN LAST NIGHT AND DURING THE DAY FOR A BM DID NOT WORK YET. GAVE PT A SCHEDULED COLACE AND WARM PRUNE JUICE. AFTERWARDS PT HAD A VERY LARGE SOFT BM. ALSO, PT HAS VOIDED SEVERAL TIMES AFTER HAVING MERCADO REMOVED. PT SLEEPING WELL AT THIS TIME. WILL CONTINUE TO MONITOR FREQUENTLY.
[2021-02-26 08:00] VITALS: BP 136/44
--- NOTE | 2021-02-26 10:00 | NUR ---
PT SITTING UP IN CHAIR, PT WOULD PREFER TO SLEEP IN RECLINER. PT LUNGS CLEAR. PT HAS BOWEL SOUNDS AND PASSING GAS. PT LOWER EXT SWOLLEN. PT TAKES DIURETICS FOR THE SWELLING. PT HAD LARGE BM YESTERDAY. PT USES WALKER TO AMBULATE TO [facility]. PT VOIDING WITHOUT ANY ISSUES SINCE JESS WAS D/C.
--- NOTE | 2021-02-26 13:55 | NUR ---
Cont. discharge planning as needed for dc needs.
--- NOTE | 2021-02-26 14:45 | NUR ---
PT GETTING LEGS WRAPPED AT THIS TIME FOR LYMPHEDEMA BILATERL.
[2021-02-26 19:45] VITALS: BP 143/53
--- NOTE | 2021-02-27 00:10 | NUR ---
PT ALERT AND ORIENTED X 4. UP TO BSC WITH ASSIST X 1. VOIDING WITHOUT DIFFICULTY. 02 SAT 98% ON 1L AT 2335. OXYGEN REMOVED. LYMPHEDEMA WRAPS INTACT TO BILAT LE'S. PT DENIES PAIN OR DISCOMFORT. SLEEPS IN RECLINER. CHAIR ALARM ON FOR SAFETY. PT APPEARS TO BE SLEEPING ON HOURLY ROUNDS.
[2021-02-27 06:03] LABS: ABSOLUTE NEUTROPHILS 4.9 thou/uL (1.4-8.2); BASOPHILS 0.3 % (0.0-2.0); EOSINOPHILS 0.3 % (0.0-3.0); HEMATOCRIT 30.8 % (37.0-47.0); HEMOGLOBIN 10.5 gm/dL (12.0-15.0); LYMPHOCYTES 27.9 % (24.0-44.0); MCH 29.4 pg (26.0-34.0); MCHC 34.1 g/dL (28.0-37.0); MCV 86.3 fL (80.0-100.0); MONOCYTES 10.4 % (1.0-8.0); PLATELET COUNT 248 thou/uL (150-400); POLYS 61.1 % (36.0-66.0); RBC 3.56 mil/uL (4.20-5.00); RDW 17.1 % (10.5-14.5); WBC 8.1 thou/uL (4.0-11.0)
[2021-02-27 06:12] LABS: CALCIUM 8.6 mg/dL (8.5-10.1); CREATININE 1.4 mg/dL (0.6-1.0); MAGNESIUM 2.1 mg/dL (1.8-2.4); POTASSIUM 3.6 mmol/L (3.5-5.1)
--- NOTE | 2021-02-27 07:40 | NUR ---
PT AWAKE THIS AM IN RECLINER CHAIR PT STATED SHE SLEPT WELL. PT HAS BOWEL SOUNDS AMD BM YESTERDAY. PT HAS LYMPHEDEMA WRAPS BILATERAL. DRESSING TO RT NECK IS INTACT, PT STATED SHE IS HAVING SOME ITCHING WHERE TAPE IS. PT UP X1 PERSON WITH WALKER. PT ENCOURAGED TO WALK TO BATHROOM INSTEAD OF BSC TO HELP INCREASE ACTIVITY. PT LUNGS CLEAR AND ON ROOM AIR. PULSE +1 TO PEDAL. PT DENIES ANY PAIN OR SOB.
[2021-02-27 08:00] VITALS: BP 148/80
--- NOTE | 2021-02-27 15:11 | NUR ---
ADM SENNACOT LAXATIVE FOR PT STATED NO BM SINCE 2 DAYS NOW.
[2021-02-27 20:00] VITALS: BP 143/53
--- NOTE | 2021-02-28 00:30 | NUR ---
PT ALERT AND ORIENTED X 4. UP TO BSC WITH ASSIST X 1. LYPHEDEMA WRAPS INTACT TO BILAT LE'S. PT DENIES PAIN OR DISCOMFORT. SLEEPS IN RECLINER. CHAIR ALARM ON FOR SAFETY. PT APPEARS TO BE SLEEPING ON HOURLY ROUNDS.
[2021-02-28 07:15] VITALS: BP 139/57
[2021-02-28 19:51] VITALS: BP 149/45
[2021-02-28 21:45] VITALS: BP 160/70
--- NOTE | 2021-02-28 23:27 | NUR ---
PT ASSESSMENT COMPLETED AND VSS. MEDS GIVEN ORDERED AND WELL TOLERATED. FALL PRECAUTIONS IN PLACE. UP TO THE BATHROOM WITH ASST/GAIT/WALKER. STEADY. PT SLEEPING IN CHAIR SHE DOES AT HOME. SLEEPING MEDICATION WORKING WELL. PT DENIES NEEDS. WILL CONTINUE TO MONITOR FREQUENTLY.
[2021-03-01 08:00] VITALS: BP 146/57
--- NOTE | 2021-03-01 08:26 | NUR ---
PT SITTING UP IN THE CHAIR THIS AM. PT HR IRREGULAR. PT HAS BOWEL SOUNDS AND LAST BM 02/28. PT LUNGS CLEAR AND ON ROOM AIR. PT DENIES ANY SOB. PT HAS REDDNESS TO PANIS BILATERALY THAT IS HEALING FROM [place]STAT[place] POWDER. PT DENIES ANY PAIN. PT IS UP WITH WALKER X1 ASSIST.
--- NOTE | 2021-03-01 15:05 | H ---
"[facility] [place] [address] HISTORY AND PHYSICAL Name: RAULITO BYERS Room #: 516-1 ADM IN M.R.#: [id number] Admission: 02/24/21 Attend Phys: Yusuf Kyle MD Discharge: Date of : 42 Report #: [id number] THIS REPORT FOR: cc: Navi Pérez MD, Steven E. MD Smithson,Yusuf Smith MD ~ DATE OF SERVICE: 02/24/2021 HISTORY OF PRESENT ILLNESS: The patient is a 80-year-old white female who has been admitted to [facility] on 02/20/2021, weak, tired, fever, frequent urinary changes. She was also noted to have mental status changes. She was diagnosed with septic shock secondary to urinary tract infection. She also had atrial fibrillation with rapid ventricular rate, was placed on amiodarone. She is noted to have severe protein calorie malnutrition and history of peripheral neuropathy. Her lactic acidosis resolved. She also has a history prior of chronic steroids for severe arthritis with immunosuppression. She was noted to have mental status changes with documentation of encephalopathy, thought to be toxic metabolic. She also has generalized weakness and debilitation. The patient was followed with Cardiology for the atrial fibrillation, thought to be appeared to be permanent atrial fibrillation. Continuing anticoagulation with Eliquis. She had some vascular congestion on chest x-ray that appears to be improving and she was transitioned to oral Demadex. Infectious Disease saw her and noted the sepsis was secondary to a complicated urinary tract infection with isolation of E. coli and pneumonitis complicated by encephalopathy, respiratory failure, renal failure along with her multiple other medical comorbidities. She is still needing nasal prong O2, which is new for her. Her mental status is overall improved, but still cognitive deficits noted and she is cooperating with the therapy program. She was noted to have acute hypoxic respiratory failure secondary to the pulmonary edema and she improved from 6 liters-3 liters, which she has currently been utilizing. She was not on any oxygen at home, premorbidly. She has, however, started to decrease it further down to 1 liter nasal cannula from 3 liters. She has now been admitted for acute in-hospital inpatient rehabilitation. PAST MEDICAL HISTORY: Atrial fibrillation, hypertension, peripheral neuropathy, hyperlipidemia, rheumatoid arthritis, on chronic steroids. She has a history of significant arthritis of her back with chronic low back pain. MEDICATIONS: Please see the full medication listing. ALLERGIES: DULOXETINE FROM [place]MB[place]. SOCIAL HISTORY: Lives in a house with her , 2-story although there is an elevator. 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 She utilized a cane for ambulation. There are also grandchildren including a couple of [facility] [address] [place] [address] HISTORY AND PHYSICAL Name: RAULITO BYERS Room #: 516-1 ADM IN M.R.#: [id number] Admission: 02/24/21 Attend Phys: Yusuf Kyle MD Discharge: Date of : 44 Report #: [id number] grandson's that work on the [employer] farm with them. REVIEW OF SYSTEMS: No current complaints of chest pain, shortness of breath, abdominal discomfort. PHYSICAL EXAMINATION: GENERAL: The patient was seen on 02/24/2021. She was in no distress, a 73-year-old obese, on nasal prong O2. Facies appeared symmetric. She follows basic commands, but there is definitely a latency to her responses. VITAL SIGNS: Temperature 36.6, pulse 70, respirations 20, blood pressure 156/73. HEENT: Appeared to be benign. Face is symmetric. CHEST: Some decreased diffuse breath sounds. CARDIAC: Sounded irregular. ABDOMEN: Obese. Bowel sounds positive, nontender. GENITOURINARY AND RECTAL: Deferred as having Smith catheter. NEUROLOGIC: She has decreased range of motion of both upper extremities with strength, probably a grade 3+ to 4-/5. Lower extremities, strength is probably a grade 3+ to 4-/5. Tone appeared to be intact. No focal calf swelling. Functionally, she has been moving around in therapies, needing mod assist coming to stand, although the nurses noted that she needed more of a max assist upon coming up to the rehabilitation boss with some increased assistance needed with fatigue. She is min assist to try to ambulate 120 feet with a front-wheeled walker. She does have some safety deficits that are noted. With moderate impairment, has some difficulty following directions. ASSESSMENT: A 80-year-old white female with the following problem list: 1. Toxic metabolic encephalopathy. 2. Medical complexity with generalized debilitation. 3. Septic shock secondary to acute urinary tract infection with complications of respiratory failure and renal insufficiency. 4. Atrial fibrillation with rapid ventricular response. She was on the amiodarone drip. 5. Lactic acidosis, which resolved. 6. Peripheral neuropathy. 7. Chronic steroid use for severe arthritis and immunosuppression. 8. Premorbid chronic low back pain with degenerative arthritis. 9. Acute renal insufficiency superimposed on chronic renal insufficiency. Appears to be stabilizing with last creatinine 1.3. PLAN: The patient has been admitted for acute in-hospital inpatient rehabilitation. Please see the patient's previous and current functional status. As far as risk of complication, she does have the multiple medical comorbidities as noted above. The initial plan of care involves the interdisciplinary acute inpatient rehabilitation program. Measurable functional [facility] [address] [place] [address] HISTORY AND PHYSICAL Name: RAULITO BYERS Room #: 516-1 ADM IN M.R.#: [id number] Admission: 02/24/21 Attend Phys: Yusuf Kyle MD Discharge: Date of : 44 Report #: [id number] goals would be for the patient to become modified independent with transfers, mobility, ADLs and to improve as far as overall cognition, so she can return back to the home setting. Prognosis is reasonably good with estimated length of stay probably at least 10-14 days. Potential barriers would include her multiple medical comorbidities and decreased functional status. The patient's diagnosis is appropriate for an acute in-hospital inpatient rehabilitation stay. She meets the medical necessity criteria. She does have the tolerance for therapies and has appropriate discharge goals back to the home setting. We will have the multiple cognos consultant physicians continue to follow while she is on the acute inpatient rehabilitation boss. <ELECTRONICALLY SIGNED> By: Yusuf Kyle MD 03/01/21 1505 [id number] Yusuf Kyle MD /nt"
[2021-03-01 19:59] VITALS: BP 152/48
--- NOTE | 2021-03-02 02:00 | NUR ---
PT ASSESSMENT COMPLETED AND VSS. MEDS GIVEN ORDERED AND WELL TOLERATED. FALL PRECAUTIONS IN PLACE. PT SLEEPING IN THE CHAIR LIKE SHE DOES AT HOME. UP TO THE BATHROOM SEVERAL TIMES. VOIDING LARGE AMOUNT OF YELLOW URINE. SMALL BM AT HS. SLEEPING MEDICATION HELPFUL. FUNGAL POWDER PLACED IN FOLDS ORDERED. PT SLEEPING WELL. DENIES NEEDS. WILL CONTINUE TO MONITOR FREQUENTLY.
--- NOTE | 2021-03-02 08:49 | NUR ---
PT SITTING IN CHAIR FOR BREAKFAST. PT TOOK MEDS WHOLE WITH WATER. PT UP STAND-BY ASSIST WITH WALKER. PT LUNGS CLEAR AND ON ROOM AIR. PT LBM 03/02. PT DENIES ANY PAIN. LE WRAPPED IN STEFFANIE BANDAGE.
--- NOTE | 2021-03-02 13:38 | NUR ---
Team meeting, recommendation: Using fww. pills and bills need assist. Lymphedema wraps bilat lower. Spouse visits every day. Family lives close. Always someone home with her. Granddaughter will be there as well. 03/03 Mod I with FWW in room. Dc 03/04 hh ( pt, ot, st, and nursing,) will need lymphedema wraps assist at home from hh.
--- NOTE | 2021-03-02 17:10 | NUR ---
FAXED REFERRAL, BPCI NOTIFICATION AND NEGATIVE COVID RESULT (02/24/21) TO [facility]. NOTED PATIENT WILL DISCHARGE ON 03/04/21 AND NEED LYMPHEDEMA THERAPY. WILL CONFIRM THEY RECEIVED AND AVAILABLE TO PROVIDE SERVICES. PCP - ALEJANDRO SANDOVAL MD. [facility] [phone]; FAX [phone]; M [phone] KENNETH/INTAKE
[2021-03-02 19:40] VITALS: BP 170/43
--- NOTE | 2021-03-03 00:19 | NUR ---
PT ALERT AND ORIENTED X 4. AMB TO BR WITH WALKER AND ASSIST X 1 WITHOUT DIFFICULTY. PT C/O PAIN IN HER NECK. TYLENOL GIVEN AT HS WITH ADEQUATE PAIN RELIEF VERBALIZED. PT SLEEPS IN RECLINER. PT APPEARS TO BE SLEEPING ON HOURLY ROUNDS.
[2021-03-03 07:30] VITALS: BP 158/62
--- NOTE | 2021-03-03 08:23 | NUR ---
PT SITTING UP IN CHAIR THIS AM. PT HAS HER OWN EUGENE HOSE ON FROM HOME, PT ABLE TO WEAR SHOES AT THIS TIME, SWELLING HAS DECREASED TO LE. PT EXCITED ABOUT MOD-1 AND GOING HOME TOMMORROW. PT LUNGS CLEAR. PT HAS IRREGULAR HR. PT DENIES ANY PAIN THIS AM. PT UP VIA WALKER IN ROOM. PT TOOK MEDS WHOLE IN WATER.
--- NOTE | 2021-03-03 09:43 | NUR ---
Cm notified by OT that she will not need lymphedema wraps at home, started elena noble yesterday. Cm visited with spouse lucy via phone call and they are ok with using interim hh, [facility]. Will be ready tomorrow by 1300 to go home per lucy.
[2021-03-03 09:46] VITALS: BP 158/62
[2021-03-03 20:00] VITALS: BP 153/44
--- NOTE | 2021-03-04 03:21 | NUR ---
ASSUMED CARE AT 1900 OF 03/03. PATIENT IS A&OX4. ABLE TO MAKE NEEDS KNOWN. MODIFIED INDEPENDENT IN ROOM, USING WALKER FOR AMBULATION. DENIES PAIN OR SOB. PATIENT PREFFERS SLEEPING IN RECLINER. FEET ARE OFFLOADED WHILE IN RECLINER. CALL LIGHT WITHIN REACH. SLEEPING DURING HOURLY ROUNDS. WILL CONTINUE TO MONITOR.
[2021-03-04 08:00] VITALS: BP 152/58
[2021-03-04] MEDS ORDERED: DEMADEX20 MG PO (09:15)
[2021-03-04] MEDS ORDERED: MELATONIN5 M1 PO (09:15)
--- NOTE | 2021-03-04 09:42 | NUR ---
Assessed for LOS, day 8. Admitted to rehab for debility s/p treatment for septic shock, metabolic encephalopathy. Wtih hx acute on chronic renal failure. On diuretic, steroid, ABT, MVI. Physician documents moderate PCM, defer dx. Intakes 100% on heart healthy diet since admit to rehab. Favorable weight loss noted r/t diuresis. BMI >35, obese II. BM 03/03. Consider low nutrition risk.
[2021-03-04] MEDS ORDERED: LOSARTAN POTAS100 MG PO (10:00)
[2021-03-04 11:38] VITALS: BP 158/62
--- NOTE | 2021-03-04 12:00 | NUR ---
discharge instructions and medications, self care instructions all reviewed with pt and spouse, and pt assisted to wc. She was able to wheel self to elevator with cga for turns, and transferred into the car with cga. All belongings were sent with patient at me.
--- NOTE | 2021-03-05 12:16 | NUR ---
FAXED DISCHARGE ORDERS AND SUMMARY TO [facility] WITH NOTATION THAT SHE DISCHARGED ON 03/04/21. WILL CONFIRM THEY RECEIVED. [facility] P [phone]; FAX [phone]
--- NOTE | 2021-03-07 16:57 | HC ---
[facility] [place] [address] CONSULTATION Name: RAULITO BYERS Room #: 516-1 [facility] IN M.R.#: [id number] Admission: 02/24/21 Attend Phys: Yusuf Kyle MD Discharge: 03/04/21 Date of : 44 Report #: [id number] THIS REPORT FOR: cc: Navi Pérez MD, Steven E. MD Deutch,Geronimo Doyle. PhD ~ DATE OF SERVICE: 02/28/2021 NEUROBEHAVIORAL STATUS EXAMINATION ATTENDING PHYSICIAN: Yusuf Kyle M.D. GROCERY STOCK CLERK: Geronimo Olmdeo, PhD CLINICAL PRESENTATION: The patient is a 80-year-old female admitted to the [facility] on 02/20/2021 with fatigue, lethargy, fever and urinary track infection. She was diagnosed with septic shock secondary to the urinary tract infection. The patient also had atrial fibrillation with rapid ventricular rate and was placed on amiodarone. She is noted to have severe protein calorie malnutrition and a history of peripheral neuropathy. Her assessment on admission to the rehabilitation unit was toxic metabolic encephalopathy, medical complexity with generalized debilitation, septic shock secondary to acute urinary tract infection with complications of respiratory failure and renal insufficiency, atrial fibrillation with rapid ventricular response, lactic acidosis, peripheral neuropathy, chronic steroid use for severe arthritis and immunosuppression, premorbid chronic low back pain with degenerative arthritis, acute renal insufficiency superimposed on chronic renal condition and appears to be stabilizing with a creatinine of 1.3. A complete description of her medical condition and history along with medications can be found in her medical record. Neuropsychological consultation was requested to provide assistance in the assessment of cognitive and emotional status and to provide recommendations and services. Prior to this most recent admission, she was living with her in their home. Her provided most of the history during my interview. The patient was amnestic regarding the events preceding her hospitalization and during her initial treatment. She discontinued driving about 6 months prior to her admission. She and her had been isolated from others because of the COVID pandemic for about 12 months. Prior to the deterioration in her medical condition, she was managing medications and bills along with cooking. The patient and her have a granddaughter that has been helping manage some aspects of their financial affairs. She had two children. One son about 4 years ago. She has one living daughter with 5 grandchildren. [facility] [address] [place] [address] CONSULTATION Name: RAULITO BYERS Room #: 516-1 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 More recently her granddaughter has been assisting them. Patient is a high school graduate. TECHNIQUES UTILIZED: Clinical interview, review of medical records, staff consultation and behavioral observation, mini mental status exam 2 standard version and verbal fluency assessment (letter and category). EXAMINATION FINDINGS: The patient was alert and cooperative with the assessment. There is no evidence of aphasia. Her thoughts are logical and goal oriented. However, the patient was tearful during the interview, although denying symptoms of anxiety or depression. She reports a decreased appetite. She does not report difficulty with sleep or word finding. Her performance on the MMSE 2 brief version was in the mild range of impairment with a raw score of 13 and 16. She had difficulty with initial encoding, possibly due to hearing deficits as she requires the use of aids. She was 5/5 for orientation to time, 4/[address] and 2/3 for immediate recall after a brief delay and distractin. The patient was 26 of 30 on the MMSE 2 standard version, which is within normal limits. She was 5/5 for serial sevens, but required an extended delay. She was 2/2 for naming, 1/1 for repetition, 3/3 for auditory comprehension, 1/1 for being able to read and follow a single command and write a sentence. The patient was unable to accurately copy a simple geometric design. Clock drawing was within normal limits, but delayed with extended effort and time. Category fluency as assessed by a single category was within normal limits. However, severe deficits were noted in letter fluency. The patient is presenting with deficits in speed of processing, immediate recall, visual spatial construction and executive functioning. Cognitive impairment is likely associated with systemic medical etiology. DIAGNOSTIC IMPRESSION: Mild Neurocognitive disorder, unspecified, without behavior disorder Unspecified depressive disorder. RECOMMENDATIONS: The patient will likely require increased supervision and structure upon return home. She will need assistance with the management of medication and bills. Her overall level of functioning will likely improve upon stabilization of her medical condition and return to a familiar environment and routine. [facility] [address] [place] [address] CONSULTATION Name: RAULITO BYERS Room #: 516-1 [facility] IN M.R.#: [id number] Admission: 02/24/21 Attend Phys: Yusuf Kyle MD Discharge: 03/04/21 Date of : 44 Report #: [id number] Thank you very much for allowing me to provide the consultation on this patient. <ELECTRONICALLY SIGNED> By: Geronimo Olmedo, PhD 03/07/21 [id number] Geronimo Olmedo, PhD /nt
== END 2021-03-04 12:15 | disposition home health service (06) | DRG 91 ==
PROVIDERS: Nurse Practitioner; ADMIT Physical Medicine & Rehabilitation; ATTEND Physical Medicine & Rehabilitation
DX: G92 Toxic encephalopathy (principal); R65.21 Severe sepsis with septic shock; A41.51 Sepsis due to Escherichia coli [E. coli]; J18.9 Pneumonia, unspecified organism; J96.01 Acute respiratory failure with hypoxia; N39.0 Urinary tract infection, site not specified; E44.0 Moderate protein-calorie malnutrition; N17.9 Acute kidney failure, unspecified; R53.81 Other malaise; K59.00 Constipation, unspecified; I48.91 Unspecified atrial fibrillation; R33.9 Retention of urine, unspecified; D63.8 Anemia in other chronic diseases classified elsewhere; N18.9 Chronic kidney disease, unspecified; G62.9 Polyneuropathy, unspecified; G89.29 Other chronic pain; M54.5 Low back pain; F03.90 Unspecified dementia, unspecified severity, without behavioral disturbance, psychotic disturbance, mood disturbance, and anxiety; F32.9 Major depressive disorder, single episode, unspecified; B96.20 Unspecified Escherichia coli [E. coli] as the cause of diseases classified elsewhere; I12.9 Hypertensive chronic kidney disease with stage 1 through stage 4 chronic kidney disease, or unspecified chronic kidney disease; M06.9 Rheumatoid arthritis, unspecified; M47.819 Spondylosis without myelopathy or radiculopathy, site unspecified; E78.5 Hyperlipidemia, unspecified; I27.20 Pulmonary hypertension, unspecified; E03.9 Hypothyroidism, unspecified; E66.9 Obesity, unspecified; Z79.891 Long term (current) use of opiate analgesic; Z79.01 Long term (current) use of anticoagulants; Z88.8 Allergy status to other drugs, medicaments and biological substances; Z68.38 Body mass index [BMI] 38.0-38.9, adult; Z87.11 Personal history of peptic ulcer disease
CPT/HCPCS: 10112

== ENCOUNTER → 2021-04-09 | Outpatient (CLI) | payer OTHER ==
[~2021-04-09] MED LIST changes: +MELATONIN5 M1 PO
== END ==
LOC: SJCVC 13:53
PROVIDERS: ATTEND Internal Medicine Cardiovascular Disease
DX: R94.31 Abnormal electrocardiogram [ECG] [EKG] (principal); I48.21 Permanent atrial fibrillation; I10 Essential (primary) hypertension; E78.00 Pure hypercholesterolemia, unspecified; I87.303 Chronic venous hypertension (idiopathic) without complications of bilateral lower extremity; D68.59 Other primary thrombophilia; Z79.899 Other long term (current) drug therapy; Z88.8 Allergy status to other drugs, medicaments and biological substances

== ENCOUNTER → 2021-05-06 | Outpatient (CLI) | payer OTHER | LOC: MRI 09:17 | PROVIDERS: ATTEND Physical Medicine & Rehabilitation | DX: M47.816 Spondylosis without myelopathy or radiculopathy, lumbar region (principal); M48.061 Spinal stenosis, lumbar region without neurogenic claudication; M43.16 Spondylolisthesis, lumbar region; I71.4 Abdominal aortic aneurysm, without rupture ==

== ENCOUNTER → 2021-06-22 | Outpatient (CLI) | payer OTHER | LOC: MRI 10:23 | PROVIDERS: ATTEND Physical Medicine & Rehabilitation | DX: M53.3 Sacrococcygeal disorders, not elsewhere classified (principal); M16.10 Unilateral primary osteoarthritis, unspecified hip ==